=== PATIENT | female | born 1995 | race Caucasian/White ===

== ENCOUNTER 2017-07-01 18:01 | Emergency (ER) | payer OTHER ==
[~2017-07-01] VITALS: Ht 172.7 cm; Wt 88.1 kg
[2017-07-01 18:16] VITALS: TEMP 36.9; O2SAT 97; Ht 172.7 cm; Wt 88.1 kg
[2017-07-01 19:28] LABS: CALCIUM 9.4 mg/dl (8.5-10.1); CREATININE 0.82 mg/dl (0.60-1.20); POTASSIUM 3.6 mmol/L (3.5-5.1)
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
[2017-07-01 21:43] VITALS: BP 149/71; PULSE 87; O2SAT 96
== END 2017-07-01 21:43 | disposition home or self-care (01) ==
LOC: C.EDC 18:03
DX: F10.129 Alcohol abuse with intoxication, unspecified (principal); S20.229A Contusion of unspecified back wall of thorax, initial encounter; W19.XXXA Unspecified fall, initial encounter; Y90.6 Blood alcohol level of 120-199 mg/100 ml

== ENCOUNTER → 2017-08-10 | Outpatient (CLI) | payer OTHER | END | disposition home or self-care (01) | LOC: C.PAPS 14:01 | PROVIDERS: ATTEND Physician Assistant | DX: Z01.411 Encounter for gynecological examination (general) (routine) with abnormal findings (principal); R87.628 Other abnormal cytological findings on specimens from vagina ==

== ENCOUNTER → 2017-08-10 | Outpatient (CLI) | payer OTHER | END | disposition home or self-care (01) | LOC: C.LABSPEC 13:32 | PROVIDERS: ATTEND Physician Assistant | DX: Z01.419 Encounter for gynecological examination (general) (routine) without abnormal findings (principal); L29.8 Other pruritus; R35.0 Frequency of micturition ==